=== PATIENT | male | born 1970 | race Caucasian/White ===

== ENCOUNTER 2017-10-02 17:30 | Emergency (ER) | payer SELFPAY ==
[~2017-10-02] VITALS: Ht 175.3 cm; Wt 98.1 kg
[2017-10-02] MEDS ORDERED: PERCOCET 5/31 TABLET PO (18:12)
[2017-10-02 18:21] VITALS: BP 152/98
== END 2017-10-02 18:22 | disposition home or self-care (01) ==
LOC: EME 17:30
DX: M27.69 Other endosseous dental implant failure (principal); K08.89 Other specified disorders of teeth and supporting structures; Z98.811 Dental restoration status
CPT/HCPCS: 99281; 99284